=== PATIENT | female | born 1970 | race Two or more races ===

== ENCOUNTER 2021-05-19 12:36 | Emergency (ER) | payer OTHER ==
[~2021-05-19] VITALS: Ht 162.6 cm; Wt 90.7 kg
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
--- NOTE | 2021-05-19 14:12 | NUR ---
PT GIVEN WARM BLANKET
--- NOTE | 2021-05-19 15:07 | NUR ---
PT LAYING COMFORTABLY IN BED, NEEDS MET
--- NOTE | 2021-05-19 15:43 | NUR ---
Patient discharged to home in stable condition. Written and verbal after care instructions given. Patient verbalizes understanding of instruction.
[2021-05-19 15:44] VITALS: BP 155/89
== END 2021-05-19 15:47 | disposition home or self-care (01) ==
LOC: ER 12:39
DX: R51.9 Headache, unspecified (principal); F07.81 Postconcussional syndrome; R07.89 Other chest pain; Z88.0 Allergy status to penicillin; Z88.5 Allergy status to narcotic agent; Z60.2 Problems related to living alone
CPT/HCPCS: 70450-TC; 71045-TC; 72125-TC